=== PATIENT | female | born 1970 | race Two or more races ===

== ENCOUNTER 2021-11-29 18:30 | Emergency (ER) | payer BC ==
[~2021-11-29] VITALS: Ht 160 cm; Wt 68.0 kg
--- NOTE | 2021-11-29 19:05 | NUR ---
BIBSELF C/O RT RIB PAIN WITH SOB, S/P MECH FALL -KO. TOOK 800 MG OF IBUPROFEN PER PT. PT A/OX4. TOLERATING R/A WELL. NO ABNORMAL DEFORMITIES NOTED. CONNECTED PT TO POX AND MONITOR.
--- NOTE | 2021-11-29 19:41 | NUR ---
PT TAKEN TO RADIOLOGY VIA W/C
[2021-11-29] MEDS ORDERED: IBUPROFEN 400 MG TABLET ONE (20:32)
[2021-11-29] MEDS: IBUPROFEN 400 MG TABLET PO ONE (20:33)
[2021-11-29 20:47] VITALS: BP 160/103
--- NOTE | 2021-11-29 20:47 | NUR ---
Patient discharged to home in stable condition. Written and verbal after care instructions given. Patient verbalizes understanding of instruction. PT ambulatory with a steady gait
[2021-12-04] MEDS ORDERED: IBUP-1953 PO (16:28)
== END 2021-11-29 20:47 | disposition home or self-care (01) ==
LOC: ER 18:42
DX: S20.219A Contusion of unspecified front wall of thorax, initial encounter (principal); I10 Essential (primary) hypertension; Z90.710 Acquired absence of both cervix and uterus; Z88.0 Allergy status to penicillin; Z91.013 Allergy to seafood; W01.0XXA Fall on same level from slipping, tripping and stumbling without subsequent striking against object, initial encounter; Y93.01 Activity, walking, marching and hiking; Y92.89 Other specified places as the place of occurrence of the external cause; Y99.8 Other external cause status
CPT/HCPCS: 71100-TC; 73502; 73564-TC